=== PATIENT | female | born 1960 | race Caucasian/White ===

== ENCOUNTER 2016-07-25 23:23 | Emergency (ER) | payer BC ==
--- NOTE | 2016-07-26 00:25 | ER PHYSICIAN DOCUMENTATION ---
Physician Documentation [facility] Name:Brenda Diallo Age:55 yrs Sex:Female :1960 Arrival Date:07/25/2016 Time:23:23 Bed6 Private MD: Nigel Dasilva Disposition: 07/26/16 00:01 Discharged to Home/Self Care. Impression: Ankle Sprain. - Condition is Good. - Discharge Instructions: Ankle - SPRAIN ANKLE (w/ x-ray). - Medical Reconciliation form form. - Follow up: Jesse Mina DO, Teto Albert MD; When: As needed; Reason: Continuance of care. - Problem is new. - Symptoms have improved. HPI: 07/26 00:00 This 55 yrs old Female presents to ER via Walk In with complaints of Ankle jm Injury - LEFT. 00:00 The patient presents with an injury, pain. The complaints affect the left ankle. Onset: jm The symptom(s)/episode began/occurred just prior to arrival. Context: resulted from a mis-step by the patient, on a curb, The mechanism of injury involved inversion of the affected ankle. The patient can partially bear weight on the affected extremity. Historical: - Allergies: Sulfa (Sulfonamide Antibiotics); - Home Meds: 1. aleve, armour thyroid, phentamine Unknown - PMHx: arthritis, hypothyroidism, TIA 2008, surgeries: c section, hysterectomy, bilat oophorectomies, bladder repair, breast augmentation; Acute Allergic Reaction - to a Topical Medication (July 01, 2014); - Tetanus: < 10 years. - Ebola Screening: : No symptoms or risks identified at this time. . - Immunization history: Flu Vaccine < 1 year. - Social history: Smoking status: Patient states was never smoker of tobacco. ROS: 00:00 MS/extremity: Positive for injury or acute deformity, Negative for swelling. jm 00:00 Skin: Negative for swelling. 00:00 Neuro: Negative for numbness, weakness. Exam: 00:00 Constitutional: The patient appears alert, awake, comfortable. jm 00:00 Musculoskeletal/extremity: Extremities: grossly normal except: noted in the anterior aspect of left ankle: pain, tenderness, ROM: intact in all extremities, Pulses: are normal with no appreciated deficits. 00:00 Skin: Appearance: Color: pink, swelling, is not appreciated, injury, is not appreciated. Vital Signs: 00:20 BP 123 / 77; Pulse 77; Resp 16; Temp 97.9; Pulse Ox 93% ; Weight 77.11 kg; Height 5 ft. mk4 8 in. (172.72 cm); Pain 8/10; 00:20 Body Mass Index 25.85 (77.11 kg, 172.72 cm) mk4 MDM: 07/25 23:50 Patient medically screened. caio 07/26 00:00 Differential diagnosis: fracture, sprain. Data reviewed: vital signs, nurses notes, and jm as a result, I will discharge patient. Counseling: I had a detailed discussion with the patient and/or guardian regarding: the historical points, exam findings, and any diagnostic results supporting the discharge/admit diagnosis, radiology results, the need for outpatient follow up, with the patient's primary care provider. ED course: Pt fx noted. Pt placed in walking boot. DC home. . 07/25 23:53 Order name: ANKLE; 3[place] [id number] EDMS 07/26 10:35 Order name: ANKLE; 3[place] [id number] EDMS Dispensed Medications: No medications were administered Signatures: Nigel Pollock MD MD jm King, Melody 4
--- NOTE | 2016-07-26 00:25 | ER NURSING DOCUMENTATION ---
Nurse's Notes [facility] Name:Brenda Diallo Age:55 yrs Sex:Female :1960 Arrival Date:07/25/2016 Time:23:23 Bed6 Private MD: Diagnosis:Ankle Sprain Presentation: 07/25 23:55 Presenting complaint: Patient states: Left ankle pain. Tripped down one step. 4 Transition of care: Home. Notified ED Physician of Phill Cannon notified. 23:55 Method Of Arrival: Walk In [facility] 23:55 Acuity: IRASEMA 4 [facility] Triage Assessment: 07/26 00:18 General: Appears comfortable, Behavior is cooperative. Pain: Complains of pain in [facility] anterior aspect of left ankle Pain currently is 8 out of 10 on a pain scale. Quality of pain is described as aching. EENT: No deficits noted. Neuro: No deficits noted. Cardiovascular: No deficits noted. Respiratory: Airway is patent. GI: No deficits noted. : No deficits noted. Musculoskeletal: Circulation, motion, and sensation intact Capillary refill < 3 seconds Swelling present in anterior aspect of left ankle. Injury Description: Deformity. Historical: - Allergies: Sulfa (Sulfonamide Antibiotics); - Home Meds: 1. aleve, armour thyroid, phentamine Unknown - PMHx: arthritis, hypothyroidism, TIA 2008, surgeries: c section, hysterectomy, bilat oophorectomies, bladder repair, breast augmentation; Acute Allergic Reaction - to a Topical Medication (July 01, 2014); - Tetanus: < 10 years. - Ebola Screening: : No symptoms or risks identified at this time. . - Immunization history: Flu Vaccine < 1 year. - Social history: Smoking status: Patient states was never smoker of tobacco. Screenin:22 Infectious Disease Risk None. Abuse screen: Denies injuries from another. Nutritional [facility] screening: No deficits noted. Assessment: 00:22 See Triage Assessment done by same RN. [facility] Vital Signs: 00:20 BP 123 / 77; Pulse 77; Resp 16; Temp 97.9; Pulse Ox 93% ; Weight 77.11 kg; Height 5 ft. mk4 8 in. (172.72 cm); Pain 8/10; 00:20 Body Mass Index 25.85 (77.11 kg, 172.72 cm) [facility] ED Course: 07/25 23:24 Patient arrived in ED. ma1 23:35 Senait Elliott is Primary Nurse. edvin 23:48 Port Xray Completed. taryn 23:50 Nigel Pollock MD is Attending Physician. caio 23:53 ANKLE; 3[place] [id number] In Process Unspecified. EDMS 23:55 Triage completed. mk4 23:55 ANKLE; 3[place] [id number] Sent. hz 23:58 ANKLE; 3[place] [id number] In Process Unspecified. EDMS 07/26 00:00 Jesse Mina DO, Teto Albert MD is Referral Physician. caio 00:21 Allergy Band Placed Arm band placed on Bed in low position Call Light in Reach Side mk4 rails up x2. Family accompanied patient. X-ray done. Affected limb iced. Affected limb elevated. 00:22 Valuables Remains with patient. Door closed. Verbal reassurance given. mk4 00:23 Portable x-ray done. Walking boot applied. mk4 Administered Medications: No medications were administered Outcome: 00:01 Discharge ordered by . caio 00:23 Discharged to home ambulatory. mk4 00:23 Condition: good 00:23 Discharge instructions given to patient, Instructed on discharge instructions, follow up and referral plans. [facility] Demonstrated understanding of instructions. 00:24 Patient left the ED. mk4 Signatures: Dispatcher [employer] EDOK Nigel Pollock MD MD jm King, Melody mk4 Janzen, Sarah sj Zolnowski, Heather hz Addison Radha maDave
--- NOTE | 2016-07-26 10:34 | RADIOLOGY REPORT ---
HISTORY: Left ankle pain and swelling. COMPARISON: None. FINDINGS: Three views of the left ankle were performed. There is no acute fracture or dislocation. There is moderate bimalleolar soft tissue swelling, latera l greater than medial. The bones are normally mineralized and aligned. There is plantar calcaneal spu rring. The ankle mortise is well-preserved. IMPRESSION: Bimalleolar soft tissue swelling. No evidence of ankle fracture or malalignment. Final Electronic Signature: This report was electronically signed by Dean Sainz MD on 07/27/19 17 10:32 AM. roberto /
== END 2016-07-26 00:25 | disposition home or self-care (01) ==
LOC: ER 23:23
DX: S96.912A Strain of unspecified muscle and tendon at ankle and foot level, left foot, initial encounter (principal); W18.49XA Other slipping, tripping and stumbling without falling, initial encounter; Y92.480 Sidewalk as the place of occurrence of the external cause; Y93.01 Activity, walking, marching and hiking
CPT/HCPCS: 99283